=== PATIENT | female | born 2000 | race Hispanic/Latino ===

== ENCOUNTER 2023-03-09 18:44 | Emergency (ER) | payer SELFPAY ==
[2023-03-09] MEDS ORDERED: Ibuprofen 200 MG TAB ONE ×2 (19:24→19:28)
== END 2023-03-09 19:34 | disposition home or self-care (01) ==
LOC: CSHERS 18:44
DX: S83.91XA Sprain of unspecified site of right knee, initial encounter (principal); F17.200 Nicotine dependence, unspecified, uncomplicated
CPT/HCPCS: 99283

== ENCOUNTER 2025-07-30 14:08 | Outpatient (CLI) | payer OTHER | END 2025-07-30 14:09 | disposition home or self-care (01) | LOC: CSHULT 14:08 | PROVIDERS: ATTEND Family Medicine | DX: Z34.02 Encounter for supervision of normal first pregnancy, second trimester (principal); Z3A.20 20 weeks gestation of pregnancy | CPT/HCPCS: 76805 ==